=== PATIENT | male | born 1965 | race African-American/Black ===

== ENCOUNTER → 2016-09-02 | Outpatient (CLI) | payer OTHER ==
[~2016-09-02] VITALS: Ht 167.6 cm; Wt 77.1 kg
[~2016-09-02] MED LIST: AMITRIPTYLINE H10 M3 PO; AMITRIPTYLINE H25 M2 PO; MIRALAX17 GM PO; MOBIC15 MG PO; NEURONTIN300 MG PO; OMEPRAZOLE 20 M20 MG PO; STOOL SOFTENER100 M1 PO; VITAMIN D1000 UNIT PO
--- NOTE | ~2016-09-02 | HPC ---
[facility] [place] [address] PAIN MANAGEMENT CONSULTATION Name: MICH FENTON Room #: KARLA Woods#: [id number] Admission: 09/02/16 Attend Phys: Michelle Akers MD Discharge: Date of : 63 Report #: [id number] THIS REPORT FOR: //name// CC: Jon Sparks MD DATE OF SERVICE: 09/02/2016 FOLLOWUP COMPLAINT: The pain has improved since we first started, but it is still really bad. FOLLOWUP HISTORY: The patient is a 51-year-old black gentleman who has been referred to the pain clinic for evaluation of back and leg pain. The patient had undergone an epidural steroid injection at the last visit. He notes some pain improvement. He has less pain and discomfort down into his leg, but it still is problematic. He continues to walk with a cane. He finds that bowel movements are still quite problematic. He states that he is eating a high-fiber diet and taking other medications as prescribed by his physician, but continues to have pain, which is pain with bowel movements and that they are happening on about a weekly basis. The patient continues to have pain and discomfort in the left and right groin area at times. He states that there is a mass-like sensation in the left groin area. States that he has seen a patrol conductor who recommended more fruits, more vegetables, more fiber and that he has been following that protocol. PHYSICAL EXAMINATION: Blood pressure 118/73, pulse 82, respiratory rate 16, room air saturation is 98%. The patient has pain in the lower back, which he rates as a 7/10. It radiates down into the L5-S1 nerve root distribution. He also has some left and right groin discomfort which consists of some burning, aching and sharp sensations. He notes increased pain in his leg and this is associated with bowel movements. IMPRESSION: 1. Lumbar radiculopathy, right L5-S1 distribution. 2. Postoperative pain in the abdominal area and the groins. 3. Difficult bowel movements, treated by increased fiber intake as well as use of mag citrate. 4. 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 The patient has seen a psychiatrist/psychologist on Mondays. RECOMMENDATION: We discussed treatment options with the patient. Risks and benefits of an epidural steroid injection were again reviewed. Possible complications were discussed. The patient elects to proceed. [address] [address] PAIN MANAGEMENT CONSULTATION Name: MICH FENTON Room #: REG CL ParisAilyn#: [id number] Admission: 09/02/16 Attend Phys: Michelle Akers MD Discharge: Date of : 63 Report #: [id number] PROCEDURE NOTE: The patient was placed in the prone position. Fluoroscopy was used to identify the L5-S1 nerve root area on the right. 0.25% bupivacaine was infiltrated. A 17-gauge Tuohy with loss of resistance technique was used to gain access to the epidural space. There was no CSF, heme or paresthesia. A total of 80 mg Depo-Medrol, 40 mg triamcinolone and 2 mL of 0.25% bupivacaine was injected. The patient tolerated the procedure well. He will increase his Elavil from 10 mg nightly, which was helpful, but the patient still awoke in the wall insulation sprayer hours to 25 mg at bedtime. He will take this for 3-4 days. If he notes that he still is waking up, he will increase it to 50 mg p.o. at bedtime. He will call us if he has any problems with his medications. The patient states that he has fallen a couple of times since we saw him last. He continues to walk and ambulate with his cane. By: [id number] Michelle Akers MD /linda
[2016-09-02 10:52] VITALS: BP 118/73
== END | disposition home or self-care (01) ==
LOC: PAIN 08-24 06:46
DX: M54.16 Radiculopathy, lumbar region (principal); G89.18 Other acute postprocedural pain; K59.00 Constipation, unspecified; F32.9 Major depressive disorder, single episode, unspecified; F17.200 Nicotine dependence, unspecified, uncomplicated

== ENCOUNTER → 2016-11-02 | Outpatient (CLI) | payer OTHER ==
[~2016-11-02] VITALS: Ht 167.6 cm; Wt 77.8 kg
[~2016-11-02] MED LIST changes: +PERCOCET 10-321 EACH PO
[2016-11-02 09:08] VITALS: BP 136/95
== END ==
LOC: PAIN 06:49
DX: N50.819 Testicular pain, unspecified (principal); M79.604 Pain in right leg

== ENCOUNTER → 2016-11-18 | Outpatient (CLI) | payer OTHER | LOC: MRI 11-11 11:36 | DX: M54.16 Radiculopathy, lumbar region (principal) ==

== ENCOUNTER → 2016-11-23 | Outpatient (CLI) | payer OTHER ==
[~2016-11-23] VITALS: Ht 170.2 cm; Wt 78.0 kg
== END | disposition home or self-care (01) ==
LOC: PAIN 07:08
DX: M54.16 Radiculopathy, lumbar region (principal); R10.30 Lower abdominal pain, unspecified; F32.89 Other specified depressive episodes; Z98.890 Other specified postprocedural states

== ENCOUNTER → 2017-02-10 | Outpatient (CLI) | payer OTHER ==
[~2017-02-10] VITALS: Ht 167.6 cm; Wt 72.0 kg
[~2017-02-10] MED LIST changes: +AMITRIPTYLINE H75 M1 PO; +NEURONTIN 300300 M1 PO
--- NOTE | ~2017-02-10 | HPC ---
[facility] [place] [address] PAIN MANAGEMENT CONSULTATION Name: MICH FENTON Room #: KARLA PerdueYao#: [id number] Admission: 02/10/17 Attend Phys: Michelle Akers MD Discharge: Date of : 63 Report #: [id number] THIS REPORT FOR: //name// CC: Jon Moody MD DATE OF SERVICE: 02/10/2017 FOLLOWUP COMPLAINT: Pain in the low back area with pain radiating down into the right leg. FOLLOWUP HISTORY: The patient is a 51-year-old gentleman who has been seen in the pain clinic because of lumbar radiculopathy. He has undergone epidural steroid injections in the L5-S1 distribution in the past. He has gleaned benefits from these. He returns today indicating that his pain continues to be somewhat problematic. It radiates down into the right L5-S1 nerve root area. He has felt that there has been some swelling in this area. He also has some testicular pain. He is having some pins and needle sensations down into the right leg involving his toes. Rates his pain as an 8/10. He is having numbness, tingling, weakness and notes that the pain is worse with standing, walking, movement, sitting and with bowel movements. PHYSICAL EXAMINATION: Blood pressure is 108/66, respiratory rate 16, heart rate 76, saturation is 100%. Height 5 feet 6 inches, weight 167 pounds, BMI is 25. The patient has pain and discomfort in the right L5-S1 distribution with pain radiating down the posterior portion of his leg in the L5-S1 distribution with numbness and tingling down into his toes. IMPRESSION: 1. Lumbar radiculopathy in the L5-S1 distribution consistent with L5-S1 radiculopathy. 2. History of postoperative pain in the area, status post hernia repair. 3. Depression secondary to chronic pain after the hernia surgery. The patient continues to see psychiatrist/psychologist. He would like to proceed with an epidural steroid injection today. We discussed the risks and benefits of the procedure, which could include but are not limited to infection, increased muscle soreness, headache, bleeding, nerve trauma, muscle trauma or worsening of pain and discomfort. The patient elects to proceed. PROCEDURE NOTE: The patient was placed in the prone position. Fluoroscopy was used to identify the L5-S1 area. This area had been sterilely prepped with Betadine and infiltrated with 0.25% bupivacaine. A total of 80 mg Depo-Medrol, 40 mg triamcinolone was injected. The patient tolerated the procedure well. [address] [address] PAIN MANAGEMENT CONSULTATION Name: MICH FENTON Room #: REG YAMIL Woods#: [id number] Admission: 02/10/17 Attend Phys: Michelle Akers MD Discharge: Date of : 63 Report #: [id number] There were no complications. His pain improved and decreased from 8 to 2 at the time of discharge. Prescriptions for medications were written. He will follow up in the future as needed. We would like to thank you for letting us to participate in his care. We hope he continues to improve. <ELECTRONICALLY SIGNED> By: Michelle Akers MD 04/27/17 0945 1428 [id number] Michelle Akers MD /[facility]
[2017-02-10 10:14] VITALS: BP 108/66
== END | disposition home or self-care (01) ==
LOC: PAIN 01-20 07:43
DX: M54.16 Radiculopathy, lumbar region (principal); F32.9 Major depressive disorder, single episode, unspecified; G89.29 Other chronic pain; Z98.890 Other specified postprocedural states

== ENCOUNTER → 2017-03-24 | Outpatient (CLI) | payer OTHER ==
[~2017-03-24] VITALS: Ht 167.6 cm; Wt 71.0 kg
[~2017-03-24] MED LIST changes: +AMITRIPTYLINE H50 M3 PO; +CELEBREX 200 M200 M1 PO; +MEDROLDOSEPACK PO
--- NOTE | ~2017-03-24 | HPC ---
[facility] [place] [address] PAIN MANAGEMENT CONSULTATION Name: MICH FENTON Room #: KARLA PerdueYao#: [id number] Admission: 03/24/17 Attend Phys: Michelle Akers MD Discharge: Date of : 63 Report #: [id number] THIS REPORT FOR: //name// CC: Jon Balderas MD DATE OF SERVICE: 03/24/2017 CHIEF COMPLAINT: Pain in the right hip down into the right leg and the toes. FOLLOWUP HISTORY: The patient is a 51-year-old gentleman who has been seen in the pain clinic because of lumbar radiculopathy. He continues to have pain and discomfort in the right L5-S1 nerve root distribution. He has undergone epidural steroid injections to help mitigate his pain. As you may recall, he underwent surgery for bilateral inguinal hernias in February 2016. States that when he awoke, he was experiencing pain, which was radiating down into his right leg. Further MRI studies indicate on 11/18/2016 MRI that the patient has a bulging L5-S1 annular tear in the right lateral recess. It contacts and displaces posteriorly the right S1 nerve root. There is also a mild broad-based disk protrusion at this location. The patient continues to have pain and discomfort, which corresponds to the MRI findings. Continues to have numbness, weakness and tingling in the affected leg. He rates his pain as an 8/10 today. He has returned for treatment. PHYSICAL EXAMINATION: VITAL SIGNS: Blood pressure 112/71, pulse 69, respiratory rate 16, room air saturation is 97%. Height 5 feet 6 inches, weight 156 pounds, BMI is 25. He notes pain and discomfort while standing, walking and with movement and pain can be exacerbated by prolonged sitting as well as with bowel movement. Pain radiates down from his buttocks into the right leg and involves his toes. IMPRESSION: 1. Lumbar radiculopathy with pain in the L5-S1 distribution consistent with MRI findings. 2. Postoperative pain improved in the groin area where hernia repairs were conducted. 3. Depression secondary to chronic pain after hernia surgery. The patient continues to see psychiatry/psychologist. RECOMMENDATIONS: We discussed treatment options with the patient. At this juncture, we will proceed with another epidural steroid injection. Risks and benefits of the procedure were again reviewed. Possible complications were explained. The risks which include but are not limited to infection, increased muscle soreness, headache, bleeding, nerve trauma, spinal headache. [address] [address] PAIN MANAGEMENT CONSULTATION Name: MICH FENTON Room #: REG [facility] Chuck#: [id number] Admission: 03/24/17 Attend Phys: Michelle Akers MD Discharge: Date of : 63 Report #: [id number] The patient states that he did not have the lumbar radicular pain at the time of the hernia repairs. Hard to tell, but sometimes prolonged lying in a certain position can exacerbate lumbar nerves and we have seen patients who have undergone patient who have remained motionless for a period of time to get imaging and have complained of pain and discomfort as a result of this. This may well be what influenced and contributed to the patient's lumbar radiculopathy. He will undergo an injection today. He will follow up as needed. We would like to thank you for letting us participate in his care. We hope he continues to improve. <ELECTRONICALLY SIGNED> By: Michelle Akers MD 04/27/17 0945 1804 0641 Michelle Akers MD /[facility]
--- NOTE | ~2017-03-24 | P ---
[facility] [place] [address] PROCEDURE REPORT Name: MICH FENTON Room #: REG YAMIL Chuck#: [id number] Admission: 03/24/17 Attend Phys: Michelle Akers MD Discharge: Date of : 63 Report #: [id number] THIS REPORT FOR: //name// CC: Michelle WRIGHT DATE OF SERVICE: 03/24/2017 PROCEDURE NOTE We have discussed the treatment options with the patient. Risks and benefits of an epidural steroid injection, which could include but are not limited to infection, increased muscle soreness, headache, bleeding, worsening of pain, and nerve trauma were discussed. The patient elects to proceed. PROCEDURE NOTE: The patient was taken to the procedure area. He was assisted on to the table in the procedure room. His back was sterilely prepped with a Betadine solution. It was allowed to dry. Fluoroscopy was used to identify the L5-S1 interspace on the right paramedian position. This area was infiltrated with 0.25% bupivacaine. A 17-gauge Tuohy with loss of resistance technique was used to gain access to the epidural space. There was no CSF, heme, or paresthesia. A total of 80 mg Depo-Medrol, 40 mg triamcinolone, and 2 mL of 0.25% bupivacaine was injected. The patient tolerated the procedure well. There were no complications. His back was examined. There was no bleeding. A Band-Aid was placed. The patient was then taken to the recovery area. He remained in the pain clinic for an appropriate amount of time. Rated his pain as a 4/10. Total of 7 seconds fluoroscopy time was used. The patient will call us if he has any problems or complaints. We would like to thank you for letting us to participate in his care. We hope he continues to improve. <ELECTRONICALLY SIGNED> By: Michelle Akers MD 06/09/17 1332 1443 [id number] Michelle Akers MD /[facility]
[2017-03-24 10:50] VITALS: BP 112/71
== END | disposition home or self-care (01) ==
LOC: PAIN 07:06
DX: M54.16 Radiculopathy, lumbar region (principal); Z98.890 Other specified postprocedural states; F32.9 Major depressive disorder, single episode, unspecified

== ENCOUNTER → 2017-04-28 | Outpatient (CLI) | payer OTHER ==
[~2017-04-28] VITALS: Ht 167.6 cm; Wt 74.2 kg
--- NOTE | ~2017-04-28 | HPC ---
[facility] [place] [address] PAIN MANAGEMENT CONSULTATION Name: MICH FENTON Room #: KARLA PerdueYao#: [id number] Admission: 04/28/17 Attend Phys: Michelle Akers MD Discharge: Date of : 63 Report #: [id number] THIS REPORT FOR: //name// CC: Jon Sparks MD DATE OF SERVICE: 04/28/2017 FOLLOWUP COMPLAINT: Here for medication renewal. FOLLOWUP HISTORY: The patient is a 52-year-old gentleman who has been followed in the pain clinic. He has a long history as you may recall. He had some problems with hernia, underwent surgery to repair the hernia. The patient has had pain in his back with L5-S1 lumbar radiculopathy since that time. He has undergone a series of epidural steroid injections. He continues to have right nerve symptomatology. He walks with a cane. He rates his pain as a 7-8 at this juncture. He is having pain that he describes as pain radiating down into his right buttocks and involving his toes. He notes that the pain is worse when he is standing, walking, and with movement. It improves when he lies down. PHYSICAL EXAMINATION: Blood pressure is 114/81, pulse 65, respiratory rate 14, room air saturation 98%. Height 5 feet 6 inches, weight 163 pounds, BMI is 26. The patient continues to complain of pain and discomfort in the lower portion of his back in the L5-S1 distribution with numbness, weakness and tenderness. He walks and ambulates with use of a cane. He has an antalgic gait, leaning forward and placing significant amounts of weight on the cane when he walks. IMPRESSION: 1. Lumbar radiculopathy with pain in the L5-S1 distribution which continues. Has MRI findings which show lesion at the L5-S1 distribution. 2. Postoperative pain in the groin areas, improving. 3. Depression. The patient states he no longer sees a psychologist. RECOMMENDATIONS: We discussed treatment options with the patient. At this juncture, we will have the patient see Physical Therapy. I think it could be important that he try to continue with increased activity and physical therapy would be a good option. We have discussed this with him. The patient will see a physical therapist and note the improvements there. A script for amitriptyline 75 mg has been discontinued. The patient felt that 75 mg of amitriptyline may be attributing to his increased sleepiness. We will cut back to 50 mg p.o. at bedtime, he was able to tolerate that well. We will also continue with gabapentin 300 mg 1 p.o. t.i.d. We may continue to increase the gabapentin medication, he is only on 900 mg per day. He will call us if he has any problems with his medications. [address] [address] PAIN MANAGEMENT CONSULTATION Name: MICH FENTONN Room #: KARLA YAMIL Woods#: [id number] Admission: 04/28/17 Attend Phys: Michelle Akers MD Discharge: Date of : 63 Report #: [id number] We would like to thank you for letting us participate in his care. We hope he continues to improve. <ELECTRONICALLY SIGNED> By: Michelle Akers MD 07/19/17 1121 1627 0131 Michelle Akers MD /nt
[2017-04-28 08:18] VITALS: BP 114/81
== END ==
LOC: PAIN 04-21 10:02
DX: M54.16 Radiculopathy, lumbar region (principal); R10.9 Unspecified abdominal pain; F32.9 Major depressive disorder, single episode, unspecified; Z98.890 Other specified postprocedural states

== ENCOUNTER → 2017-08-11 | Outpatient (CLI) | payer OTHER ==
[~2017-08-11] VITALS: Ht 167.6 cm; Wt 76.7 kg
--- NOTE | ~2017-08-11 | HPC ---
[facility] [place] [address] PAIN MANAGEMENT CONSULTATION Name: MICH FENTON Room #: KARLA PerdueYao#: [id number] Admission: 08/11/17 Attend Phys: Michelle Akers MD Discharge: Date of : 63 Report #: [id number] THIS REPORT FOR: //name// CC: MEME HANCOCK MD DATE OF SERVICE: 08/11/2017 FOLLOWUP COMPLAINT: Pain is getting worse. I am in bed quite a bit. FOLLOWUP HISTORY: The patient is a 52-year-old gentleman who has been seen in the pain clinic because of lumbar radiculopathy. He has been experiencing pain in the L5-S1 distribution. He has had some shots in this area. He continues to have pain, which is quite problematic. States that his pain is worsening. He is having pain that radiates into the right leg. Stretching his leg causes some pain that radiates down the posterior portion of his leg into his posterior thigh in the popliteal area and in this calf with some pain and aching down into his foot. He feels that his pain continues to be quite problematic. He is feeling depressed because of the chronicity of this pain. He states that he has had some talk with some psychiatrist at the [facility]. He has been told that his pain may well be associated with previous problems in his life. He states that he does not feel that this pain has anything to do with going on in his past life. This pain is real and radiates down the back of his leg with numbness involving his buttocks as well as in his toes. He is sleeping better with use of the Elavil medication. He did find that it caused him to be a bit too sedated when he was at 75 mg per day, but now feels that he is not sleeping quite as well at the level of 50 mg of Elavil per day. He continues to have some problem with constipation and he is not taking opioid medications at this point. He does not feel that his problem with constipation is associated with narcotic use. The patient has not had a Medrol Dosepak in sometime. He continues to feel that he is becoming more and more limited in his ability to engage in activities of daily living. Still has pain that radiates into the buttocks and the anal area. Has some testicular pain on the right side as well. ALLERGIES: No known drug allergies. MEDICATIONS: Reviewed are amitriptyline 50 mg daily, Celebrex 200 mg b.i.d., omeprazole 20 mg daily, vitamin D3, docusate stool softener 200 mg b.i.d. PAIN CLINIC ASSESSMENT: 1. History of osteoarthritis, the patient is not being treated for osteoarthritis or rheumatoid arthritis. 2. Height 5 feet 6 inches, weight 169 pounds, BMI is 27. 3. Vital signs: Blood pressure 132/90, pulse 68, respiratory rate 14, room air [address] [address] PAIN MANAGEMENT CONSULTATION Name: MICH FENTON Room #: KARLA LOBO Chuck#: [id number] Admission: 08/11/17 Attend Phys: Michelle Akers MD Discharge: Date of : 63 Report #: [id number] saturation about 95%. 4. Pain intensity 12/15. 5. Fall risk. The patient uses a cane with ambulation. He has fallen several times in the last three months because of pain in his right leg and he feels that it gives way secondary to severe pain. 6. The patient is not on a blood thinner 7. History of hypertension, the patient is not being treated for hypertension. 8. Opioid therapy, the patient is not on an opioid therapy. 9. Risk assessment tool rates 05/15 which is low for opioid use. 10. Functional assessment tool. 11. Recreational drug use. The patient denies use of recreational medications. Tobacco: The patient denies, he has never smoked cigarettes. 12. Alcohol, denied frequent use of alcoholic beverages. PHYSICAL EXAMINATION: The patient is a well-developed black male. He appears his stated age. He is alert and oriented x 3. Affect: The patient is somewhat distraught and appears depressed. He has been tearful during the interview as well as in interaction with the pain staff. HEENT: Normocephalic, atraumatic. Extraocular eye muscles intact. Mucous membranes moist. Hearing within normal limits. NECK: Without adenopathy or bruits. HEART: Regular rate. ABDOMEN: Nontender. MUSCULOSKELETAL: Judged to be relatively normal without significant scoliosis, kyphosis or lordosis upper extremities. Muscle strength is judged to be 5/5 of the major muscle groups as well as wildlife biostation research ecologist strength. Lower extremity, the patient will ambulate with use of a cane. Sits in the chair with his right leg flexed. When he has his legs flexed, he has less pain and discomfort in his back to extend it cause worsening of his pain. Walks with use of a cane. Uses hands to go from a sitting to a standing position and then ambulates with use of his hands. Complains of pain and discomfort in the lower buttocks on the right side in the posterior portion down in the area of the popliteal area calf as well as some numbness, tingling, pain and discomfort down into his feet. LABORATORY DATA: No new laboratory values are available. MRI of the lumbar spine dated 11/18/2016 reveals L5-S1 mild asymmetric bulge at L5-S1 with a subtle annular tear noted in the right lateral recess. There is contact and mild posterior displacement of the right S1 nerve root. The potential mild broad-based disk protrusion is also considered at this location. No significant neural foraminal narrowing is noted. L4-L5 is negative. IMPRESSION: 1. Lumbar radicular pain in the L5-S1 distribution as described above. 2. Postoperative pain in the groin area, which continues to improve. 3. Depression. 4. Chronic constipation. [facility] [address] [place] [address] PAIN MANAGEMENT CONSULTATION Name: BIN FENTONBe TREVIÑO Room #: REG [facility] Nette.#: [id number] Admission: 08/11/17 Attend Phys: Michelle Akers MD Discharge: Date of : 63 Report #: [id number] RECOMMENDATIONS: We discussed treatment options with the patient. At this juncture, we will have the patient try another Medrol Dosepak. He did find that there was some what efficacious in the early yelena. He has not had one in a while. We will see if this would be helpful in decreasing his pain. We will increase the patient's Elavil from 50 mg at bedtime to 60 mg at bedtime. He will take an additional 10 mg tablet at night. He may take up to two additional tablets for a total of 70 mg per night if he feels that he is having more problems with sleeping and continued pain and discomfort. We will start the patient on gabapentin/Gralise. A sample packet has been given. The patient will take this over the next 14 days. Hopefully, he will notice an improvement in the pain and discomfort, which he is experiencing. He has been using Neurontin at 900 mg per day, but is pretty much felt some side effects as a result of increasing doses. The patient is concerned about his back. He would like to see an orthopedic surgeon. We will have him consider been evaluated by a surgeon, [facility] may need to be involved. He would like to see Dr. Russell who is at [facility]. The patient has been given the number to Dr. Russell to be seen for an evaluation. We would like to thank you for letting us participate in his care. We hope he continues to improve. <ELECTRONICALLY SIGNED> By: Michelle Akers MD 08/16/17 0851 [id number] 0303 Michelle Akers MD /JENNIFER
[2017-08-11 10:23] VITALS: BP 132/91
== END ==
LOC: PAIN 06-02 06:58
DX: M47.897 Other spondylosis, lumbosacral region (principal); G89.18 Other acute postprocedural pain; F32.9 Major depressive disorder, single episode, unspecified; K59.09 Other constipation

== ENCOUNTER → 2021-02-10 | Outpatient (CLI) | payer OTHER ==
[~2021-02-10] VITALS: Ht 167.6 cm; Wt 72.6 kg
[~2021-02-10] MED LIST changes: +BACLOFEN 10MG T10 MG PO; +DULOXETINE HCL30 MG PO; +LIDOCAINE35.44 GM TOP; +LIDODERM1 EACH TOP; +MIRALAX119 GM PO; +PSYLLIUM FIBER0.4 GM PO; +TIZANIDINE HCL 22 M1 PO
[2021-02-10 09:45] VITALS: BP 117/74
--- NOTE | 2021-02-10 10:18 | NUR ---
Pain Clinic Assessment: 1. History of Osteoarthritis: Not Applicable History of Rheumatoid Arthritis: Not Applicable 2. Height: 5 ft. 6 in. 167.6 cm. Weight: 160.0 lb. oz. 72.576 kg. Patient's BMI: 25.8 3. Vital Signs: BP: 117/74 Pulse: 69 Resp: 16 Temp: 02 Sat: 98 ECG Mon: 4. Pain Intensity: 8 5. Fall Risk: Dizziness: N Needs help standing or walking: N Fallen in the last 3 months: N Fall risk comments: 6. Patient on Blood Thinner: None 7. History of Hypertension: N 8. Opioid Therapy greater than 6 weeks: N Opiate Contract Signed: 9. Risk Assessment Tool Provided: 0 LOW RISK 10. Functional Assessment Tool: 68/70 11. Recreational Drug Use: Never Drug Type: Tobacco Use: Never Smoker Tobacco Type: Amount or Packs/day: How Many Years: Alcohol Use: Yes Frequency: Daily Quant: SEVERAL
== END ==
LOC: PAIN 06:55
PROVIDERS: ATTEND Anesthesiology Pain Medicine
DX: M54.16 Radiculopathy, lumbar region (principal); F34.89 Other specified persistent mood disorders; K59.09 Other constipation

== ENCOUNTER → 2021-02-12 | Outpatient (CLI) | payer OTHER ==
[~2021-02-12] VITALS: Ht 167.6 cm; Wt 72.6 kg
[2021-02-12 08:31] VITALS: BP 132/71
--- NOTE | 2021-02-12 08:35 | NUR ---
Pain Clinic Assessment: 1. History of Osteoarthritis: Not Applicable History of Rheumatoid Arthritis: Not Applicable 2. Height: 5 ft. 6 in. 167.6 cm. Weight: 160.0 lb. oz. 72.576 kg. Patient's BMI: 25.8 3. Vital Signs: BP: 132/71 Pulse: 73 Resp: 16 Temp: 02 Sat: 99 ECG Mon: 4. Pain Intensity: 8 5. Fall Risk: Dizziness: N Needs help standing or walking: N Fallen in the last 3 months: N Fall risk comments: 6. Patient on Blood Thinner: None 7. History of Hypertension: N 8. Opioid Therapy greater than 6 weeks: N Opiate Contract Signed: 9. Risk Assessment Tool Provided: 0 LOW RISK 10. Functional Assessment Tool: 68/70 11. Recreational Drug Use: Never Drug Type: Tobacco Use: Never Smoker Tobacco Type: Amount or Packs/day: How Many Years: Alcohol Use: Yes Frequency: Quant:
== END | disposition home or self-care (01) ==
LOC: PAIN 07:03
PROVIDERS: ATTEND Anesthesiology Pain Medicine
DX: M54.16 Radiculopathy, lumbar region (principal); G89.29 Other chronic pain; Z98.890 Other specified postprocedural states; Z79.899 Other long term (current) drug therapy

== ENCOUNTER → 2021-03-31 | Outpatient (CLI) | payer OTHER ==
[~2021-03-31] VITALS: Ht 167.6 cm; Wt 71.5 kg
[2021-03-31 10:51] VITALS: BP 117/55
--- NOTE | 2021-03-31 10:59 | NUR ---
Pain Clinic Assessment: 1. History of Osteoarthritis: Not Applicable History of Rheumatoid Arthritis: Not Applicable 2. Height: 5 ft. 6 in. 167.6 cm. Weight: 157.6 lb. oz. 71.487 kg. Patient's BMI: 25.4 3. Vital Signs: BP: 117/55 Pulse: 70 Resp: 16 Temp: 02 Sat: 97 ECG Mon: 4. Pain Intensity: 8 5. Fall Risk: Dizziness: Y Needs help standing or walking: N Fallen in the last 3 months: N Fall risk comments: 6. Patient on Blood Thinner: None 7. History of Hypertension: N 8. Opioid Therapy greater than 6 weeks: N Opiate Contract Signed: 9. Risk Assessment Tool Provided: 0 LOW RISK 10. Functional Assessment Tool: 68/70 11. Recreational Drug Use: Never Drug Type: Tobacco Use: Never Smoker Tobacco Type: Amount or Packs/day: How Many Years: Alcohol Use: Yes Frequency: Weekly Quant: 2-3
== END | disposition home or self-care (01) ==
LOC: PAIN 10:16
PROVIDERS: ATTEND Anesthesiology Pain Medicine
DX: M54.16 Radiculopathy, lumbar region (principal); G89.29 Other chronic pain; F32.9 Major depressive disorder, single episode, unspecified; K59.09 Other constipation; Z98.890 Other specified postprocedural states; Z79.899 Other long term (current) drug therapy

== ENCOUNTER → 2021-06-11 | Outpatient (CLI) | payer OTHER ==
[~2021-06-11] VITALS: Ht 167.6 cm; Wt 74.4 kg
[2021-06-11 09:15] VITALS: BP 155/61
--- NOTE | 2021-06-11 09:34 | NUR ---
Pain Clinic Assessment: 1. History of Osteoarthritis: Not Applicable History of Rheumatoid Arthritis: Not Applicable 2. Height: 5 ft. 6 in. 167.6 cm. Weight: 164.0 lb. oz. 74.390 kg. Patient's BMI: 26.5 3. Vital Signs: BP: 155/61 Pulse: 64 Resp: 14 Temp: 02 Sat: 97 ECG Mon: 4. Pain Intensity: 7 5. Fall Risk: Dizziness: N Needs help standing or walking: N Fallen in the last 3 months: N Fall risk comments: 6. Patient on Blood Thinner: None 7. History of Hypertension: N 8. Opioid Therapy greater than 6 weeks: N Opiate Contract Signed: 9. Risk Assessment Tool Provided: 0 LOW RISK 10. Functional Assessment Tool: 68/70 11. Recreational Drug Use: Never Drug Type: Tobacco Use: Never Smoker Tobacco Type: Amount or Packs/day: How Many Years: Alcohol Use: Yes Frequency: Quant:
== END | disposition home or self-care (01) ==
LOC: PAIN 06-09 13:08
PROVIDERS: ATTEND Anesthesiology Pain Medicine
DX: M54.16 Radiculopathy, lumbar region (principal); G89.29 Other chronic pain; F32.9 Major depressive disorder, single episode, unspecified; K59.09 Other constipation; Z98.890 Other specified postprocedural states; Z79.899 Other long term (current) drug therapy